=== PATIENT | female | born 1980 | race African-American/Black ===

== ENCOUNTER 2017-03-08 05:45 | Emergency (ER) | payer MEDICAID ==
[~2017-03-08] VITALS: Ht 170.2 cm; Wt 136.3 kg
[~2017-03-08 05:45] MED LIST: AMLO5TAB4 PO; FERR-43 PO; LISI10TA5 PO; PREN-88 PO
[2017-03-08 07:01] LABS: BASOPHILS % 0.4 % (0.0-2.0); EOSINOPHILS % 4.3 % (0.0-5.0); HEMATOCRIT. 36.5 % (36.0-48.0); HEMOGLOBIN. 12.1 g/dL (12.0-16.0); LYMPHOCYTES % 36.4 % (20.0-50.0); MEAN CORPUSCULAR HEMOGLOBIN 26.2 pg (28.0-32.0); MEAN CORPUSCULAR VOLUME 79.2 fL (81.0-99.0); MEAN PLATELET VOLUME 8.2 fl (7.4-10.4); MONOCYTES % 8.2 % (2.0-8.0); NEUTROPHILS % 50.7 % (40.0-76.0); PLATELET 220 x1000/uL (130-400); RED BLOOD CELL COUNT 4.61 mill/uL (4.2-5.4); RED CELL DISTRIBUTION WIDTH 15.8 % (11.6-14.6)
[2017-03-08 07:16] LABS: D-DIMER 0.78 mg/L FEU (<0.50); PARTIAL THROMBOPLASTIN TIME 27.8 sec (23.4-31.0); PROTHROMBIN TIME 10.5 sec (9.4-11.6)
[2017-03-08 07:29] LABS: CARBON DIOXIDE 25 mEq/L (21-32); CHLORIDE 107 mEq/L (98-107); TROPONIN I < 0.02 ng/mL (0.00-0.04)
[2017-03-08] MEDS ORDERED: ONDANSETRON HCL 4MG/2ML VIAL IV ONE (08:00)
[2017-03-08 08:01] VITALS: BP 154/86
== END 2017-03-08 09:15 | disposition home or self-care (01) ==
LOC: ER 05:45
DX: R07.89 Other chest pain (principal); J45.909 Unspecified asthma, uncomplicated; I10 Essential (primary) hypertension; E78.00 Pure hypercholesterolemia, unspecified; Z86.711 Personal history of pulmonary embolism; Z91.010 Allergy to peanuts
CPT/HCPCS: 36415; 71010; 71275; 80053; 81025; 84484; 85025; 85379; 85610; 85730; 93005; 93970; 96374; 99285; J2405; Z7610

== ENCOUNTER 2017-04-08 06:35 | Emergency (ER) | payer MEDICAID ==
[~2017-04-08] VITALS: Ht 170.2 cm; Wt 137.0 kg
[2017-04-08 06:40] VITALS: BP 149/90
== END 2017-04-08 10:00 | disposition left against medical advice (07) ==
LOC: ER 06:35
DX: M54.2 Cervicalgia (principal); Z53.21 Procedure and treatment not carried out due to patient leaving prior to being seen by health care provider

== ENCOUNTER 2017-04-09 07:50 | Emergency (ER) | payer MEDICAID, OTHER ==
[~2017-04-09] VITALS: Ht 170.2 cm; Wt 137.0 kg
[2017-04-09 09:22] VITALS: BP 127/87
[2017-04-09] MEDS ORDERED: CYCLOBENZAPRINE 10MG TABLET PO ONE (12:45)
== END 2017-04-09 14:05 | disposition home or self-care (01) ==
LOC: ER 08:08
DX: M54.2 Cervicalgia (principal); J45.909 Unspecified asthma, uncomplicated; I10 Essential (primary) hypertension; E78.00 Pure hypercholesterolemia, unspecified; Z86.711 Personal history of pulmonary embolism; Z91.010 Allergy to peanuts
CPT/HCPCS: 70490; 81025; 99284

== ENCOUNTER 2017-07-30 22:20 | Emergency (ER) | payer OTHER ==
[~2017-07-30] VITALS: Ht 172.7 cm; Wt 91.0 kg
[2017-07-30 22:51] LABS: CHLORIDE 107 mEq/L (98-107)
== END 2017-07-31 | disposition home or self-care (01) ==
LOC: ER 22:29
DX: T14.8XXA Other injury of unspecified body region, initial encounter (principal); Y93.89 Activity, other specified; Y99.8 Other external cause status; Y92.89 Other specified places as the place of occurrence of the external cause
CPT/HCPCS: 36415; 80053; 99283

== ENCOUNTER 2018-07-30 23:17 | Emergency (ER) | payer MEDICAID ==
[~2018-07-30] VITALS: Ht 170.2 cm; Wt 141.0 kg
[~2018-07-30 23:17] MED LIST changes: +ATOR10TA69 PO; -FERR-43 PO; -LISI10TA5 PO; -PREN-88 PO; +RIVA20TA PO
[2018-07-30] MEDS ORDERED: EPINEPHRINE 1:1000 1 MG/ML AMP ONE (23:40)
[2018-07-30] MEDS ORDERED: FAMOTIDINE 20MG/2ML VIAL IV ONE (23:45)
[2018-07-30] MEDS ORDERED: METHYLPREDNISOLONE SOD SUCC 125 MG/2 ML VIAL IV ONE (23:45)
[2018-07-30] MEDS ORDERED: EPINEPHRINE 1:1000 1 MG/ML AMP SUBCUT ONE (23:45)
[2018-07-30] MEDS ORDERED: DIPHENHYDRAMINE 50MG/ML VIAL IV ONE (23:45)
[2018-07-31 02:23] VITALS: BP 138/66
== END 2018-07-31 02:41 | disposition home or self-care (01) ==
LOC: ER 23:17
DX: T78.01XA Anaphylactic reaction due to peanuts, initial encounter (principal); I10 Essential (primary) hypertension; J45.909 Unspecified asthma, uncomplicated; Z91.010 Allergy to peanuts; Z86.711 Personal history of pulmonary embolism; Z79.01 Long term (current) use of anticoagulants; Z86.73 Personal history of transient ischemic attack (TIA), and cerebral infarction without residual deficits
CPT/HCPCS: 81025; 93005; 96372; 96374; 96375; 99283; J1200; J2930; J3490

== ENCOUNTER 2019-04-21 16:05 | Emergency (ER) | payer BC, MEDICAID ==
[~2019-04-21] VITALS: Ht 172.7 cm; Wt 136.0 kg
[2019-04-21] MEDS ORDERED: PREDNISONE 20MG TABLET PO ONE (17:30)
[2019-04-21] MEDS ORDERED: FAMOTIDINE 20MG TABLET PO ONE (17:30)
[2019-04-21 17:52] VITALS: BP 132/80
== END 2019-04-21 18:28 | disposition home or self-care (01) ==
LOC: ER 16:05
DX: T78.1XXA Other adverse food reactions, not elsewhere classified, initial encounter (principal); I10 Essential (primary) hypertension; E78.00 Pure hypercholesterolemia, unspecified; Z91.010 Allergy to peanuts; Z86.73 Personal history of transient ischemic attack (TIA), and cerebral infarction without residual deficits; Z86.711 Personal history of pulmonary embolism; Z79.01 Long term (current) use of anticoagulants; X58.XXXA Exposure to other specified factors, initial encounter
CPT/HCPCS: 99283; J7512

== ENCOUNTER 2020-04-13 20:31 | Emergency (ER) | payer BC ==
[~2020-04-13] VITALS: Ht 170.2 cm; Wt 100.0 kg
[2020-04-13 20:41] VITALS: BP 148/84
[2020-04-13] MEDS ORDERED: FAMOTIDINE 20MG TABLET PO ONE (21:30)
[2020-04-13] MEDS ORDERED: PREDNISONE 20MG TABLET PO ONE (21:30)
== END 2020-04-14 00:30 | disposition home or self-care (01) ==
LOC: ER 20:31
DX: T78.2XXA Anaphylactic shock, unspecified, initial encounter (principal); X58.XXXA Exposure to other specified factors, initial encounter
CPT/HCPCS: 99283; J7512

== ENCOUNTER 2020-10-03 00:27 | Emergency (ER) | payer BC ==
[~2020-10-03] VITALS: Ht 170.2 cm; Wt 141.0 kg
[2020-10-03] MEDS ORDERED: DEXAMETHASONE 10 MG/ML VIAL IV ONE (01:30)
[2020-10-03] MEDS ORDERED: DIPHENHYDRAMINE 50MG/ML VIAL IV ONE (01:30)
[2020-10-03 02:50] VITALS: BP 126/61
[2020-10-03] MEDS ORDERED: EPIN0.3P3 IM (03:57)
== END 2020-10-03 04:14 | disposition home or self-care (01) ==
LOC: ER 00:27
DX: T78.1XXA Other adverse food reactions, not elsewhere classified, initial encounter (principal); J45.909 Unspecified asthma, uncomplicated; Z91.010 Allergy to peanuts; X58.XXXA Exposure to other specified factors, initial encounter
CPT/HCPCS: 96374; 96375; 99284; J1100; J1200; Z7610

== ENCOUNTER 2020-10-13 02:23 | Emergency (ER) | payer BC ==
[~2020-10-13] VITALS: Ht 170.2 cm; Wt 141.0 kg
[~2020-10-13 02:23] MED LIST changes: +EPIN0.3P3 IM
[2020-10-13] MEDS ORDERED: DIPHENHYDRAMINE 50MG/ML VIAL IV ONE (03:00)
[2020-10-13] MEDS ORDERED: EPINEPHRINE 1:1000 1 MG/ML AMP INJ ONE (03:00)
[2020-10-13] MEDS ORDERED: DEXAMETHASONE 10 MG/ML VIAL IV ONE (03:00)
[2020-10-13] MEDS ORDERED: FAMOTIDINE 20MG/2ML VIAL IV ONE (03:00)
[2020-10-13] MEDS ORDERED: EPIN0.3P3 IM (05:59)
[2020-10-13] MEDS ORDERED: DEXA4TAB MT (05:59)
[2020-10-13 06:00] VITALS: BP 135/79
== END 2020-10-13 06:19 | disposition home or self-care (01) ==
LOC: ER 02:23
DX: T78.40XA Allergy, unspecified, initial encounter (principal); J45.909 Unspecified asthma, uncomplicated; Z86.711 Personal history of pulmonary embolism; Z91.010 Allergy to peanuts; Z79.01 Long term (current) use of anticoagulants; X58.XXXA Exposure to other specified factors, initial encounter
CPT/HCPCS: 96374; 96375; 99284; J1100; J1200; J3490

== ENCOUNTER 2020-12-10 05:18 | Emergency (ER) | payer BC ==
[~2020-12-10] VITALS: Ht 170.2 cm; Wt 145.0 kg
[~2020-12-10 05:18] MED LIST changes: +DEXA4TAB MT
[2020-12-10] MEDS ORDERED: METHYLPREDNISOLONE SOD SUCC 125 MG/2 ML VIAL IV ONE (05:45)
[2020-12-10] MEDS ORDERED: FAMOTIDINE 20MG/2ML VIAL IV ONE (05:45)
[2020-12-10] MEDS ORDERED: EPIN0.3P3 IM (07:21)
[2020-12-10 07:45] VITALS: BP 125/68
== END 2020-12-10 07:54 | disposition home or self-care (01) ==
LOC: ER 05:18
DX: T78.40XA Allergy, unspecified, initial encounter (principal); J45.909 Unspecified asthma, uncomplicated; Z86.73 Personal history of transient ischemic attack (TIA), and cerebral infarction without residual deficits; Z86.711 Personal history of pulmonary embolism; Z79.01 Long term (current) use of anticoagulants; Z91.010 Allergy to peanuts; X58.XXXA Exposure to other specified factors, initial encounter
CPT/HCPCS: 96374; 96375; 99284; J2930; J3490

== ENCOUNTER 2022-08-26 09:42 | Emergency (ER) | payer BC, OTHER ==
[~2022-08-26] VITALS: Ht 180.3 cm; Wt 114.0 kg
[2022-08-26] MEDS ORDERED: METHYLPREDNISOLONE SOD SUCC 125 MG/2 ML VIAL IV ONE (10:00)
[2022-08-26] MEDS ORDERED: FAMOTIDINE 20MG/2ML VIAL IV ONE (10:00)
[2022-08-26 10:04] VITALS: BP 139/81
[2022-08-26] MEDS ORDERED: EPIN0.3P3 IM (11:34)
== END 2022-08-26 12:12 | disposition home or self-care (01) ==
LOC: ER 09:42
DX: T78.1XXA Other adverse food reactions, not elsewhere classified, initial encounter (principal); J45.909 Unspecified asthma, uncomplicated; Z91.010 Allergy to peanuts; Z86.73 Personal history of transient ischemic attack (TIA), and cerebral infarction without residual deficits
CPT/HCPCS: 96374; 96375; 99284; J2930; J3490; Z7610